=== PATIENT | male | born 1985 | race Caucasian/White ===

== ENCOUNTER 2022-12-20 20:23 | Inpatient (IN) | payer OTHER ==
[2022-12-20 21:35] VITALS: BMI 23.0
[2022-12-20] MEDS ORDERED: NALOXONE HCL 0.4 MG/ML VIAL IM PRN (22:11)
[2022-12-20] MEDS ORDERED: ONDANSETRON *ODT* 4 MG TABLET SL PRN (22:11)
[2022-12-20] MEDS ORDERED: METHOCARBAMOL 500 MG TABLET PO PRN (22:11)
[2022-12-20] MEDS ORDERED: POLYETHYLENE GLYCOL (HEALTHYLAX) 3350 17 GM PACKET PO PRN (22:11)
[2022-12-20] MEDS ORDERED: IBUPROFEN 400 MG TABLET (FP) PO PRN (22:11)
[2022-12-20] MEDS ORDERED: hydrOXYzine PAMOATE 25 MG CAPSULE (FP) PO PRN (22:11)
[2022-12-20] MEDS ORDERED: LOPERAMIDE HCL 2 MG CAPSULE PO PRN (22:11)
[2022-12-20] MEDS ORDERED: guaiFENesin 600 MG TABLET.ER (FP) PO PRN (22:11)
[2022-12-20] MEDS ORDERED: NALOXONE HCL (KLOXXADO) 8 MG SPRAY NS PRN (22:11)
[2022-12-20] MEDS ORDERED: IBUPROFEN 600 MG TABLET (FP) PO PRN (22:11)
[2022-12-20] MEDS ORDERED: BISMUTH SUBSALICYLATE 524 MG/30 ML PO PRN (22:11)
[2022-12-20] MEDS ORDERED: BENZOCAINE/MENTHOL (CHLORASEPTIC ) LOZENGE MM PRN (22:11)
[2022-12-20] MEDS ORDERED: MAG HYDROX/AL HYDROX/SIMETH 30 ML UNIT-DOSE CUP PO PRN (22:11)
[2022-12-20] MEDS ORDERED: MAGNESIUM HYDROX 2400MG/30ML ORAL SUSPENSION 30 ML CUP PO PRN (22:11)
[2022-12-20] MEDS ORDERED: DICYCLOMINE HCL 10 MG CAPSULE PO PRN (22:11)
[2022-12-20] MEDS ORDERED: BENZONATATE 200 MG CAPSULE PO PRN (22:11)
[2022-12-20] MEDS ORDERED: ACETAMINOPHEN 325 MG TABLET (FP) PO PRN (22:11)
[2022-12-20] MEDS ORDERED: chlordiazePOXIDE HCL 25 MG CAPSULE PO PRN (22:13)
[2022-12-20] MEDS: chlordiazePOXIDE HCL 25 MG CAPSULE PO SCH (23:55)
[2022-12-20] MEDS ORDERED: chlordiazePOXIDE HCL 25 MG CAPSULE ONE (23:59)
[2022-12-21] MEDS: chlordiazePOXIDE HCL 25 MG CAPSULE PO SCH ×4 (05:43→22:43)
[2022-12-21] MEDS: PRENATAL VITAMINS W/ FOLIC ACID TABLET (FP) PO SCH (10:14)
[2022-12-21] MEDS: NICOTINE 21 MG/24 HOURS TOPICAL PATCH TD SCH (10:17)
[2022-12-21] MEDS: NICOTINE POLACRILEX 4 MG GUM BUC PRN ×2 (10:18→17:21)
[2022-12-21 12:11] LABS: HEMATOCRIT 40.8 % (35.4-49); MCH 33.1 pg (25.7-33.7); MCHC 34.4 g/dl (32.0-35.9); MEAN CELL VOLUME 96.2 fl (80-96); MEAN PLT VOLUME 7.6 fl (7.5-11.1); PLATELET COUNT 288 10^3/uL (134-434); RBC 4.24 M/mm3 (4.00-5.60); RDW 12.5 % (11.9-15.9)
[2022-12-21 12:17] LABS: ALBUMIN 3.5 g/dl (3.4-5.0); BLOOD UREA NITROGEN 5.3 mg/dL (7-18); CALCIUM 8.7 mg/dL (8.5-10.1)
[2022-12-21] MEDS: amLODIPine BESYLATE 5 MG TABLET (FP) PO SCH (12:18)
[2022-12-21 12:20] LABS: CREATININE 0.6 mg/dL (0.55-1.3)
[2022-12-21 12:21] LABS: BILIRUBIN,TOTAL 1.2 mg/dL (0.2-1)
[2022-12-21] MEDS: THIAMINE HCL 100 MG TABLET (FP) PO SCH (22:43)
[2022-12-21] MEDS: MELATONIN 5 MG TABLETS PO SCH (22:43)
[2022-12-22] MEDS: chlordiazePOXIDE HCL 25 MG CAPSULE PO SCH ×4 (05:35→22:10)
[2022-12-22] MEDS: PRENATAL VITAMINS W/ FOLIC ACID TABLET (FP) PO SCH (10:43)
[2022-12-22] MEDS: amLODIPine BESYLATE 5 MG TABLET (FP) PO SCH (10:43)
[2022-12-22] MEDS: NICOTINE 21 MG/24 HOURS TOPICAL PATCH TD SCH (10:45)
[2022-12-22] MEDS ORDERED: cloNIDine HCL 0.1 MG TABLET PO PRN (12:21)
[2022-12-22] MEDS: NICOTINE POLACRILEX 4 MG GUM BUC PRN ×2 (18:01→23:35)
[2022-12-22] MEDS: THIAMINE HCL 100 MG TABLET (FP) PO SCH (22:10)
[2022-12-22] MEDS: MELATONIN 5 MG TABLETS PO SCH (22:11)
[2022-12-23] MEDS ORDERED: chlordiazePOXIDE HCL 10 MG CAPSULE PO PRN
[2022-12-23] MEDS: chlordiazePOXIDE HCL 10 MG CAPSULE PO SCH ×4 (05:36→22:09)
[2022-12-23 06:32] VITALS: RESP 18
[2022-12-23] MEDS: PRENATAL VITAMINS W/ FOLIC ACID TABLET (FP) PO SCH (10:13)
[2022-12-23] MEDS: NICOTINE 21 MG/24 HOURS TOPICAL PATCH TD SCH (10:14)
[2022-12-23] MEDS: amLODIPine BESYLATE 5 MG TABLET (FP) PO SCH (10:15)
[2022-12-23] MEDS: THIAMINE HCL 100 MG TABLET (FP) PO SCH (22:09)
[2022-12-23] MEDS: MELATONIN 5 MG TABLETS PO SCH (23:45)
[2022-12-24] MEDS: NICOTINE POLACRILEX 4 MG GUM BUC PRN ×3 (00:30→17:33)
[2022-12-24] MEDS: chlordiazePOXIDE HCL 10 MG CAPSULE PO SCH ×2 (05:42→17:20)
[2022-12-24] MEDS: NICOTINE 21 MG/24 HOURS TOPICAL PATCH TD SCH (10:38)
[2022-12-24] MEDS: PRENATAL VITAMINS W/ FOLIC ACID TABLET (FP) PO SCH (10:39)
[2022-12-24] MEDS: amLODIPine BESYLATE 5 MG TABLET (FP) PO SCH (10:39)
[2022-12-24] MEDS: MELATONIN 5 MG TABLETS PO SCH (22:39)
[2022-12-24] MEDS: THIAMINE HCL 100 MG TABLET (FP) PO SCH (22:39)
[2022-12-25] MEDS ORDERED: chlordiazePOXIDE HCL 10 MG CAPSULE PO ONE (05:00)
[2022-12-25] MEDS: NICOTINE POLACRILEX 4 MG GUM BUC PRN (06:05)
[2022-12-25 06:41] VITALS: BP 135/74; PULSE 78; TEMP 97.8
[2022-12-25] MEDS: amLODIPine BESYLATE 5 MG TABLET (FP) PO SCH (10:15)
[2022-12-25] MEDS: PRENATAL VITAMINS W/ FOLIC ACID TABLET (FP) PO SCH (10:15)
[2022-12-25] MEDS: NICOTINE 21 MG/24 HOURS TOPICAL PATCH TD SCH (10:15)
== END 2022-12-25 09:17 | disposition home or self-care (01) | DRG 775 ==
LOC: YASAS 20:23 → Y6N 22:37
PROVIDERS: ADMIT Allergy & Immunology; ATTEND Allergy & Immunology
PROC: HZ2ZZZZ Detoxification Services for Substance Abuse Treatment (ICD-10-PCS; principal; 2022-12-20)
DX: F10.230 Alcohol dependence with withdrawal, uncomplicated (principal); F17.210 Nicotine dependence, cigarettes, uncomplicated; F19.24 Other psychoactive substance dependence with psychoactive substance-induced mood disorder; I10 Essential (primary) hypertension; Z85.72 Personal history of non-Hodgkin lymphomas; Z59.01 Sheltered homelessness
CPT/HCPCS: 36415; 80053; 85027; 86780; 87635; 87811; 93005; 93010

== ENCOUNTER 2023-12-27 23:21 | Inpatient (IN) | payer OTHER ==
[2023-12-27 23:51] VITALS: BMI 23.7
[2023-12-28] MEDS ORDERED: DICYCLOMINE HCL 10 MG CAPSULE PO PRN (00:08)
[2023-12-28] MEDS ORDERED: LOPERAMIDE HCL 2 MG CAPSULE PO PRN (00:08)
[2023-12-28] MEDS ORDERED: NALOXONE (NARCAN) HCL 4 MG/0.1 ML SPRAY NS PRN (00:08)
[2023-12-28] MEDS ORDERED: hydrOXYzine PAMOATE 25 MG CAPSULE (FP) PO PRN (00:08)
[2023-12-28] MEDS ORDERED: NALOXONE HCL 0.4 MG/ML VIAL IM PRN (00:08)
[2023-12-28] MEDS ORDERED: MAG HYDROX/AL HYDROX/SIMETH 30 ML UNIT-DOSE CUP PO PRN (00:08)
[2023-12-28] MEDS ORDERED: BISMUTH SUBSALICYLATE 524 MG/30 ML PO PRN (00:08)
[2023-12-28] MEDS ORDERED: ACETAMINOPHEN 325 MG TABLET (FP) PO PRN (00:08)
[2023-12-28] MEDS ORDERED: BENZONATATE 200 MG CAPSULE PO PRN (00:08)
[2023-12-28] MEDS ORDERED: BENZOCAINE/MENTHOL (CHLORASEPTIC ) LOZENGE MM PRN (00:08)
[2023-12-28] MEDS ORDERED: IBUPROFEN 400 MG TABLET (FP) PO PRN (00:08)
[2023-12-28] MEDS ORDERED: POLYETHYLENE GLYCOL (HEALTHYLAX) 3350 17 GM PACKET PO PRN (00:08)
[2023-12-28] MEDS ORDERED: MAGNESIUM HYDROX 2400MG/30ML ORAL SUSPENSION 30 ML CUP PO PRN (00:08)
[2023-12-28] MEDS ORDERED: guaiFENesin 600 MG TABLET.ER (FP) PO PRN (00:08)
[2023-12-28] MEDS: NICOTINE 14 MG/24 HOURS TOPICAL PATCH TD SCH (10:23)
[2023-12-28] MEDS: PRENATAL VITAMINS W/ FOLIC ACID TABLET (FP) PO SCH (10:23)
[2023-12-28] MEDS: ONDANSETRON *ODT* 4 MG TABLET SL PRN (10:29)
[2023-12-28] MEDS ORDERED: chlordiazePOXIDE HCL 25 MG CAPSULE PO PRN (11:06)
[2023-12-28] MEDS: chlordiazePOXIDE HCL 25 MG CAPSULE PO SCH (11:48)
[2023-12-28 12:01] LABS: HEMATOCRIT 38.8 % (35.4-49); HEMOGLOBIN 13.3 GM/dL (11.7-16.9); MCH 33.2 pg (25.7-33.7); MCHC 34.3 g/dl (32.0-35.9); MEAN CELL VOLUME 96.8 fl (80-96); MEAN PLT VOLUME 7.8 fl (7.5-11.1); PLATELET COUNT 228 10^3/uL (134-434); RDW 13.3 % (11.9-15.9); WHITE BLOOD COUNT 4.1 K/mm3 (4.0-10.0)
[2023-12-28 12:04] LABS: CHLORIDE 103 mmol/L (98-107); POTASSIUM 4.2 mmol/L (3.5-5.1); SODIUM 138 mmol/L (136-145)
[2023-12-28 12:14] LABS: ALBUMIN 3.6 g/dl (3.4-5.0); ANION GAP 6 mmol/L (4-13); BLOOD UREA NITROGEN 7.1 mg/dL (7-18); CALCIUM 9.1 mg/dL (8.5-10.1); CO2 29 mmol/L (21-32); GLUCOSE,RANDOM 119 mg/dL (74-106)
[2023-12-28 12:17] LABS: CREATININE 0.6 mg/dL (0.55-1.3); SGOT/AST 174 U/L (15-37); SGPT/ALT 123 U/L (13-61)
[2023-12-28 12:19] LABS: TOT PROT 6.9 g/dl (6.4-8.2)
[2023-12-28 12:20] LABS: ALK PHOS 81 U/L (45-117); BILIRUBIN,TOTAL 1.3 mg/dL (0.2-1)
[2023-12-28] MEDS: THIAMINE 100 MG TABLET PO SCH (22:18)
[2023-12-28] MEDS: MELATONIN 5 MG TABLETS PO SCH (22:18)
[2023-12-29] MEDS: METHOCARBAMOL 500 MG TABLET PO PRN (13:07)
[2023-12-29] MEDS: NICOTINE POLACRILEX 4 MG GUM BUC PRN (17:54)
[2023-12-30] MEDS: chlordiazePOXIDE HCL 25 MG CAPSULE PO SCH (05:21)
[2023-12-30] MEDS: IBUPROFEN 600 MG TABLET (FP) PO PRN (13:43)
[2023-12-31] MEDS ORDERED: chlordiazePOXIDE HCL 10 MG CAPSULE PO PRN
[2023-12-31] MEDS: chlordiazePOXIDE HCL 10 MG CAPSULE PO SCH (06:00)
[2023-12-31] MEDS: ACAMPROSATE CALCIUM 333 MG TABLET.DR PO SCH (14:41)
[2024-01-01] MEDS: chlordiazePOXIDE HCL 10 MG CAPSULE PO SCH (06:00)
[2024-01-02] MEDS: chlordiazePOXIDE HCL 10 MG CAPSULE PO ONE (05:50)
[2024-01-02 06:49] VITALS: BP 104/65; PULSE 87; RESP 17; TEMP 97.6
== END 2024-01-02 09:15 | disposition home or self-care (01) | DRG 775 ==
LOC: YASAS 23:21 → Y6N 12-28 01:54
PROVIDERS: ADMIT Allergy & Immunology; ATTEND Psychiatry & Neurology Pain Medicine
PROC: HZ2ZZZZ Detoxification Services for Substance Abuse Treatment (ICD-10-PCS; principal; 2023-12-28)
DX: F10.230 Alcohol dependence with withdrawal, uncomplicated (principal); F12.20 Cannabis dependence, uncomplicated; F17.210 Nicotine dependence, cigarettes, uncomplicated; F10.282 Alcohol dependence with alcohol-induced sleep disorder; F10.24 Alcohol dependence with alcohol-induced mood disorder; I10 Essential (primary) hypertension; R74.01 Elevation of levels of liver transaminase levels; Z85.72 Personal history of non-Hodgkin lymphomas; Z87.81 Personal history of (healed) traumatic fracture
CPT/HCPCS: 36415; 80053; 80305; 80307; 85027; 86780; 93005; 93010; Q0162